=== PATIENT | female | born 1955 | race Two or more races ===

== ENCOUNTER 2021-01-30 17:09 | Emergency (ER) | payer OTHER ==
[~2021-01-30] VITALS: Ht 167.6 cm; Wt 64.4 kg
--- NOTE | 2021-01-30 17:09 | NUR ---
[facility] C/O SOB "POSSIBLE BLOCKAGE ON THE TRACH" PT IS AAOX2, NOTED RESPIRATORY DISTRESS, HOOKED TO NECKTIES PAINTER AND AMBU BAG. RT AT BEDSIDE AND FOR EVAL.
--- NOTE | 2021-01-30 17:20 | NUR ---
TRACH REPLACED BY RT. PT V/S STABLE, NOT IN RESPIRATORY DISTRESS, AWARE.
--- NOTE | 2021-01-30 17:38 | NUR ---
ER PHLEB AT BEDSIDE FOR BLOOD DRAW.
--- NOTE | 2021-01-30 17:41 | NUR ---
WINDING DEPARTMENT SUPERVISOR AT BEDSIDE FOR XRAY.
[2021-01-30 17:44] LABS: BASOPHILS # (AUTO) 0.1 /CMM (0.0-0.2); BASOPHILS % (AUTO) 1.1 % (0.0-2.0); EOSINOPHILS % (AUTO) 6.5 % (0.0-6.0); HEMATOCRIT 32 % (33-45); HEMOGLOBIN 10.3 g/dL (11.5-14.8); LYMPHOCYTES # (AUTO) 2.4 /CMM (0.8-4.8); LYMPHOCYTES % (AUTO) 19.8 % (20.0-44.0); MEAN CORPUSCULAR HGB CONC 32 g/dl (31.0-36.0); MEAN CORPUSCULAR VOLUME 92 fL (82-100); MONOCYTES # (AUTO) 0.9 /CMM (0.1-1.30); MONOCYTES % (AUTO) 7.5 % (2.0-12.0); NEUTROPHILS % (AUTO) 65.1 % (43.0-81.0); PLATELET COUNT (AUTO) 474 /CMM (150-450); RED BLOOD CELL COUNT(AUTO) 3.48 MIL/uL (4.0-5.2); WHITE BLOOD COUNT (AUTO) 12.3 K/uL (4.3-11.0)
[2021-01-30 17:51] LABS: CALCIUM, SERUM 9.8 mg/dL (8.5-10.1); CREATININE 0.8 mg/dL (0.6-1.3); POTASSIUM 3.8 mmol/L (3.5-5.1)
--- NOTE | 2021-01-30 19:06 | NUR ---
CALLED [facility] FOR TRANSPORT TO [facility]. ETA 75-90 MINUTES.
--- NOTE | 2021-01-30 19:42 | NUR ---
Report given to Sam WHITLEY for continuation of care.
[2021-01-30 21:01] VITALS: BP 105/63
--- NOTE | 2021-01-30 21:01 | NUR ---
PT WAS PICKED UP BY [facility] AND TRANSPORTED BACK TO THE FACILITY IN STABLE CONDITION
== END 2021-01-30 21:02 | disposition home or self-care (01) ==
LOC: ER 17:14
DX: J95.03 Malfunction of tracheostomy stoma (principal); R06.03 Acute respiratory distress; I10 Essential (primary) hypertension; K21.9 Gastro-esophageal reflux disease without esophagitis; E11.40 Type 2 diabetes mellitus with diabetic neuropathy, unspecified; Z88.6 Allergy status to analgesic agent
CPT/HCPCS: 36415; 71045-TC; 80048-TC; 85025-TC

== ENCOUNTER 2021-02-04 23:14 | Inpatient (IN) | payer OTHER ==
[~2021-02-04] VITALS: Ht 167.6 cm; Wt 60.8 kg
[2021-02-04] MEDS ORDERED: ACETAMINOPHEN 650 MG/SUPP.RECT RC ONE ×2 (23:30→23:33)
--- NOTE | 2021-02-04 23:34 | NUR ---
PATIENT CAME TO THE ER BED 5 C/O SOB FROM [facility]. PATIENT IS AAOX4. PATIENT IS COUGHING W/ BLOOD FROM TRACH. PATIENT IS SUCTIONED FROM TRACH W/ BLOODY MUCOUS PLUG. PATIENT IS BREATHING EVENLY AND UNLABORED ON VENTILATOR. CONNECTED TO THE PRINCIPAL ASSOCIATE. WILL CONTINUE TO MONITOR PATIENT CLOSELY.
[2021-02-04] MEDS ORDERED: ACETAMINOPHEN 650 MG/20.3 ML UDC ONE (23:39)
[2021-02-04 23:41] LABS: BASOPHILS # (AUTO) 0.2 /CMM (0.0-0.2); HEMATOCRIT 33 % (33-45); HEMOGLOBIN 10.8 g/dL (11.5-14.8); LYMPHOCYTES # (AUTO) 4.9 /CMM (0.8-4.8); LYMPHOCYTES % (AUTO) 23.3 % (20.0-44.0); MEAN CORPUSCULAR HGB CONC 33 g/dl (31.0-36.0); MEAN CORPUSCULAR VOLUME 90 fL (82-100); MONOCYTES # (AUTO) 1.8 /CMM (0.1-1.30); MONOCYTES % (AUTO) 8.7 % (2.0-12.0); NEUTROPHILS # (AUTO) 12.9 /CMM (1.8-8.9); PLATELET COUNT (AUTO) 477 /CMM (150-450); WHITE BLOOD COUNT (AUTO) 21.2 K/uL (4.3-11.0)
[2021-02-04 23:52] LABS: CALCIUM, SERUM 10.1 mg/dL (8.5-10.1); CARBON DIOXIDE 35 mmol/L (21-32); CHLORIDE 93 mmol/L (98-107); CREATININE 0.8 mg/dL (0.6-1.3); GLUCOSE 228 mg/dL (74-106); POTASSIUM 3.7 mmol/L (3.5-5.1); SODIUM SERUM 134 mmol/L (136-145); UREA NITROGEN, BLOOD 15 mg/dL (7-18)
--- NOTE | 2021-02-04 23:55 | NUR ---
rt called to er dept for pending arrival of chronic vent pt. pt bibra ventilated via ambu bag with portex 8 trach. pt had no vent settings available to be used as reference, pt placed on vent settings ac 20 400 100% +5. suctioned a small amount of thick red tinged secretions with what appeared to be a blood clot. Addendum: 02/05/21 at 0500 by WILLIAMS GARCIA RT Amended: Links added.
[2021-02-04 23:58] LABS: ALANINE AMINOTRANSFERASE 13 U/L (12-78); ALBUMIN 2.8 g/dL (3.4-5.0); ALKALINE PHOSPHATASE 90 U/L (46-116); ASPARTATE AMINOTRANSFERASE 22 U/L (15-37); BILIRUBIN,DIRECT 0.1 mg/dL (0.0-0.2); BILIRUBIN,TOTAL 0.3 mg/dL (0.2-1.0); TOTAL PROTEIN, SERUM 8.8 g/dL (6.4-8.2)
[2021-02-05] MEDS ORDERED: VANCOMYCIN 1 GM VIAL ONE (00:58)
[2021-02-05] MEDS ORDERED: PIPERACILLIN /TAZOBACTAM 3.375 G VIAL IV ONE (00:58)
[2021-02-05] MEDS ORDERED: PIPERACILLIN /TAZOBACTAM 3.375 G in IV D5W 50 ML IV ONE (01:00)
[2021-02-05] MEDS ORDERED: VANCOMYCIN 1 GM in IV D5W 250 ML IV ONE (01:00)
[2021-02-05 01:22] LABS: BILIRUBIN,URINE SMALL (NEGATIVE); COLOR,URINE RED (YELLOW); LEUKOCYTE ESTERASE ,URINE MODERATE (NEGATIVE); NITRITE, URINE NEGATIVE (NEGATIVE); PH,URINE 5.5 (5.0-8.0); PROTEIN,URINE 100 mg/dl (NEGATIVE); UGLUCOSE NEGATIVE (NEGATIVE); UROBILINOGEN,URINE 0.2 EU/dL (0.2)
[2021-02-05] MEDS ORDERED: IV NS 0.9% 500 ML BAG IV ONE (01:30)
[2021-02-05] MEDS ORDERED: IV NS 0.9% 1,000 ML IV ONE (01:30)
--- NOTE | 2021-02-05 01:36 | NUR ---
LAB CALLED REGARDING NEGATIVE COVID RESULT.
[2021-02-05 01:53] LABS: RBC,URINE TOO NUMEROUS TO COUN /HPF (0-2)
[2021-02-05 01:54] LABS: BACTERIA,URINE Few /HPF (None Seen); SQUAMOUS EPITHELIAL CELL,UR Rare /HPF (None Seen)
[2021-02-05 01:55] LABS: WBC,URINE 51-80 /HPF (0-3); YEAST,URINE Hyphal filaments /HPF (None Seen)
[2021-02-05 02:01] LABS: ABG BASE EXCESS 4.9 mmol/L; ABG OXYGEN SATURATION 99.1 % (92.0-98.5); ABG PCO2 49.7 mmHg (35.0-45.0); ABG PH 7.404 (7.350-7.450); ABG PO2 410.5 mmHg (75.0-100.0); AaDO2 252.8 mmHg; COHb 0.3 % (0.5-1.5); MetHb 0.5 % (0.0-1.5); O2Hb 98.3 % (94.0-97.0); PEEP,BG 5 cm H2O; SITE, ABG Right Brachial; VENT MODE, BG AC 20 400 100% +5; VT, ABG 400 mL
--- NOTE | 2021-02-05 05:03 | NUR ---
TELE BED 109
--- NOTE | 2021-02-05 05:08 | NUR ---
DAUGHTER BIRD CALLED [phone]
--- NOTE | 2021-02-05 05:42 | NUR ---
RITO GUZMAN DNP PAGED PER ER MD ORDER.
--- NOTE | 2021-02-05 05:55 | NUR ---
REPORT GIVEN TO ROBERT EAGLE PANG. PENDING HOSPITAL ADMISSION.
--- NOTE | 2021-02-05 05:56 | NUR ---
TAMEKA GUPTA SPOKE TO RITO GUZMAN DNP REGARDING PT ADMISSION.
[2021-02-05] MEDS ORDERED: MAG HYDROX/AL HYDROX/SIMETH 30 ML UDC PO PRN (06:30)
[2021-02-05] MEDS ORDERED: Z GUARD REMEDY 2 OZ OINT TP PRN (06:30)
[2021-02-05] MEDS ORDERED: ONDANSETRON HCL/PF 4 MG/2 ML VIAL IVP PRN (06:30)
[2021-02-05 06:45] VITALS: BP 110/59
--- NOTE | 2021-02-05 06:45 | NUR ---
DIRECTOR OF INTEGRATED MARKETING NOTES, RECEIVED PATIENT FROM ER DEPARTMENT VIA GURNEY, ACCOMPANIED BY 2 NURSES, WITH TRACH IN PLACED CONNECTED TO MECHANICAL VENTILATOR, WITH O2 SAT LEVEL 96% AT THIS TIME, NO SOB/ACUTE DISTRESS NOTED, A/O X3 ABLE TO MOUTH WORDS AND LET NEEDS KNOWN, SINUS TACHYCARDIA IN TELE MONITOR WITH HR 114 AT THIS TIME, UNDER MEDICAL SERVICES OF RITO GUZMAN PATTERN FITTER, WITH ADMITTING DX SEPSIS/UTI/PNA, IV ACCESS IN LEFT FORE ARM, NOTED SACRAL PRESSURE SORE, AND SKIN TEAR IN RIGHT LATERAL HOWE, BED LOCK AND IN LOWEST POSITION, CALL LIGHT W/I REACH, BED S/R X2, WILL CONTINUE TO MONITOR CLOSELY.
[2021-02-05] MEDS ORDERED: ENOXAPARIN SODIUM 40 MG/0.4 ML DISP.SYRIN SQ SCH ×2 (06:47→09:00)
--- NOTE | 2021-02-05 07:40 | NUR ---
RT RECEIVED PT TRACH VENT DEPENDENT W/ NOTED SETTINGS. BINDER CUTTER HAND DONE AND TRACH IS SECURE. PT HAS PORTEX # 8 TRACH AND SPARE TRACH NOTED HOB W/ AMUB BAG. VENT IS PLUGGED IN RED OUTLET. ALARMS CHECKED AND AUDIBLE. SX W/ MOD THK BLOOD SECRETIONS. PT ON CONTINUOUS PULSE OX. NO SOB OR RESP DISTRESS. WILL CONTINUE TO MONITOR T/O SHIFT.
[2021-02-05 08:00] VITALS: BP 147/71
[2021-02-05 08:09] VITALS: BP 147/7
[2021-02-05] MEDS ORDERED: PIPERACILLIN /TAZOBACTAM 3.375 G in IV D5W 100 ML IV SCH (09:00)
[2021-02-05] MEDS ORDERED: ATOR20TA PO (09:13)
[2021-02-05] MEDS ORDERED: PIOG45TA5 PO (09:13)
[2021-02-05] MEDS ORDERED: LISI2.5T2 GT (09:13)
[2021-02-05] MEDS ORDERED: APIX2.5T GT (09:13)
[2021-02-05] MEDS ORDERED: INSU100I40 SQ (09:13)
[2021-02-05] MEDS ORDERED: CRAN3875 GT (09:40)
[2021-02-05] MEDS ORDERED: LORA-259 GT (09:40)
[2021-02-05] MEDS ORDERED: PROC10TA13 GT (09:40)
[2021-02-05] MEDS ORDERED: ERGO500014 GT (09:40)
[2021-02-05] MEDS ORDERED: SENN8.8S19 GT (09:40)
[2021-02-05] MEDS ORDERED: PROM6.256 GT (09:40)
[2021-02-05] MEDS ORDERED: NUT.250L18 GT (09:40)
[2021-02-05] MEDS ORDERED: DOCU-141 GT (09:40)
[2021-02-05] MEDS ORDERED: GABA600T12 GT (09:40)
[2021-02-05] MEDS ORDERED: BUDE180A IH (09:40)
[2021-02-05] MEDS ORDERED: ASCO500C17 GT (09:40)
[2021-02-05] MEDS ORDERED: QUET50TA GT ×2 (09:40)
[2021-02-05] MEDS ORDERED: INSU100V7 SQ (09:40)
[2021-02-05] MEDS ORDERED: PANT40TA49 GT (09:40)
[2021-02-05] MEDS ORDERED: BISA10SU11 RC (09:40)
[2021-02-05] MEDS ORDERED: MULT-447 GT (09:40)
[2021-02-05] MEDS ORDERED: METO25TA6 GT (09:40)
[2021-02-05] MEDS ORDERED: PROMETHAZINE HCL SYRUP 6.25 MG/5 ML UDC GT PRN (11:00)
[2021-02-05] MEDS ORDERED: LORAZEPAM 1 MG TABLET GT PRN (11:00)
[2021-02-05] MEDS ORDERED: METOPROLOL TARTRATE 25 MG TABLET GT PRN (11:00)
[2021-02-05] MEDS ORDERED: PROCHLORPERAZINE MALEATE 10 MG TABLET GT PRN (11:00)
[2021-02-05] MEDS ORDERED: BISACODYL SUPP (10 MG) 10 MG/SUPP.RECT SUPP.RECT RC PRN (11:00)
--- NOTE | 2021-02-05 11:14 | NUR ---
RN NOTE ATTEMPTED TO CONTACT FACILITY IN REGARDS TO CLARIFICATION ON VITAMIN D 50,000 UNITS AND IF THEY COULD PROVIDE A MEDICATION NOT STOCKED AT OUR FACILITY. WILL ATTEMPT TO CALL BACK AGAIN.
[2021-02-05 12:00] VITALS: BP 147/80
[2021-02-05] MEDS: MEROPENEM 1 G in IV NS 0.9% 100 ML IV SCH (12:23)
[2021-02-05] MEDS: GABAPENTIN 300 MG CAPSULE GT SCH ×2 (12:23→20:53)
[2021-02-05] MEDS: DEXAMETHASONE SOD PHOSPHATE 10 MG/ML VIAL IV SCH (14:14)
[2021-02-05] MEDS: VANCOMYCIN 1 GM in IV D5W 250 ML IV SCH (14:14)
[2021-02-05 16:00] VITALS: BP 142/85
[2021-02-05] MEDS: SENNOSIDES 8.6 MG TABLET GT SCH (16:29)
[2021-02-05] MEDS: GLUCERNA 1.2 1,000 ML BOTTLE NG PRN (17:32)
[2021-02-05] MEDS: ACETAMINOPHEN 325 MG TABLET PO PRN (18:52)
--- NOTE | 2021-02-05 19:13 | NUR ---
RN CLOSING NOTE PATIENT IS IN BED WITH HOB AT SEMI FOWLERS POSITION. PATIENT IS CURRENTLY ON VENT/TRACH WITH NO SIGNS OF LABORED BREATHING. PATIENT IS AOX2. SACRAL WOUND/REDNESS AND LEFT ANKLE SKIN ULCER ARE NOTED. GTUBE IS RUNNING APPROPRIATE RATE AND FEEDING. MONTEMAYOR CATHETER IS IN PLACE. ALL DUE MEDS GIVEN AND PATIENT REMAINED STABLE THROUGHOUT SHIFT. BED IS LOCKED IN THE LOWEST POSITION, 3 GUARD RAILS RAISED, CALL RASMUSSEN WITHIN REACH, AND ALL HOSPITAL SAFETY PRECAUTIONS HAVE BEEN MET. WILL ENDORSE TO PLUG WIRER RN.
[2021-02-05] MEDS: BUDESONIDE RESPULE INH 0.5 MG/2 ML AMPUL.NEB NEB SCH (19:30)
[2021-02-05 20:00] VITALS: BP 137/78
--- NOTE | 2021-02-05 20:00 | NUR ---
RN NOTE RECEIVED PT IN BED A/O X3, PT MOUTHS WORDS ON MECHANICAL VENT VIA TRACH SATING 97%, NO S/S OF RESPIRATORY DISTRESS, PT IS ON TELE MONITOR SHOWING ST WITH HR IN 110s. PT HAS G TUBE FEEDING RUNNING AT 45 ML/H CHECKED FOR PLACEMENT, 5 ML RESIDUAL NOTED. SAFETY MEASURES IN PLACE.
[2021-02-05] MEDS: APIXABAN 2.5 MG TABLET GT SCH (20:54)
[2021-02-05] MEDS: ZOLPIDEM TARTRATE 5 MG TABLET PO PRN (21:40)
[2021-02-05] MEDS: QUETIAPINE FUMARATE 25 MG TABLET GT SCH (21:40)
[2021-02-05] MEDS: INSULIN GLARGINE, 100 UNIT/ML CARTRIDGE SQ SCH (21:55)
[2021-02-05] MEDS: LORAZEPAM INJ 2 MG/ML VIAL IV PRN (22:54)
[2021-02-05] MEDS ORDERED: DEXTROSE 50%-WATER 50 ML DISP.SYRIN IV PRN (23:00)
[2021-02-06] VITALS: BP_SYST 108; BP_SYST 139; BP_DIAS 72; BP_DIAS 74
[2021-02-06] MEDS: INSULIN REGULAR, HUMAN 100 UNIT/ML 3 ML VIAL SQ PRN ×5 (00:20→23:43)
[2021-02-06] MEDS: BLOOD SUGAR DIAGNOSTIC 1 EACH STRIP IN SCH ×5 (00:21→23:40)
[2021-02-06] MEDS: MEROPENEM 1 G in IV NS 0.9% 100 ML IV SCH ×2 (00:37→12:19)
[2021-02-06] MEDS: VANCOMYCIN 1 GM in IV D5W 250 ML IV SCH (01:29)
[2021-02-06 04:00] VITALS: BP 143/65
[2021-02-06] MEDS: LORAZEPAM INJ 2 MG/ML VIAL IV PRN ×2 (04:50→20:40)
[2021-02-06] MEDS: GABAPENTIN 300 MG CAPSULE GT SCH ×3 (05:22→20:39)
[2021-02-06 06:35] LABS: BASOPHILS % (AUTO) 0.3 % (0.0-2.0); EOSINOPHILS % (AUTO) 0.1 % (0.0-6.0); HEMATOCRIT 30 % (33-45); HEMOGLOBIN 9.7 g/dL (11.5-14.8); LYMPHOCYTES # (AUTO) 1.8 /CMM (0.8-4.8); LYMPHOCYTES % (AUTO) 11.3 % (20.0-44.0); MEAN CORPUSCULAR HGB CONC 33 g/dl (31.0-36.0); MEAN CORPUSCULAR VOLUME 90 fL (82-100); MONOCYTES # (AUTO) 0.9 /CMM (0.1-1.30); MONOCYTES % (AUTO) 5.9 % (2.0-12.0); NEUTROPHILS # (AUTO) 12.8 /CMM (1.8-8.9); NEUTROPHILS % (AUTO) 82.4 % (43.0-81.0); PLATELET COUNT (AUTO) 434 /CMM (150-450); RED BLOOD CELL COUNT(AUTO) 3.27 MIL/uL (4.0-5.2); WHITE BLOOD COUNT (AUTO) 15.5 K/uL (4.3-11.0)
[2021-02-06 06:52] LABS: CALCIUM, SERUM 9.7 mg/dL (8.5-10.1); CREATININE 0.7 mg/dL (0.6-1.3); MAGNESIUM 2.1 mg/dL (1.8-2.4); PHOSPHORUS 2.3 mg/dL (2.5-4.9); POTASSIUM 3.3 mmol/L (3.5-5.1)
[2021-02-06] MEDS: BUDESONIDE RESPULE INH 0.5 MG/2 ML AMPUL.NEB NEB SCH ×2 (07:30→19:46)
[2021-02-06] MEDS ORDERED: PANTOPRAZOLE 40 MG TABLET.DR PO SCH (07:30)
--- NOTE | 2021-02-06 07:30 | NUR ---
RN NOTE REPORT GIVEN TO ONCOMING SHIFT FOR PRICILA.
--- NOTE | 2021-02-06 07:30 | NUR ---
RN OPENING NOTE TRACH PT LAYING IN BED HIGH FOWLERS ON VENT SETTINGS AC 20, TV 400 FIO2 40% PEEP 5, TOLERATING WELL, SPO2 100%, NO SIGN OF RESP DISTRESS OR SOB. PT AROUSABLE TO NAME, UNABLE TO SPEAK BUT CAN MOUTH WORDS, A/Ox3. PT HAS BILAT SOFT WRIST RESTRAINTS , PER REPORT, PULL OUT HER VENT TUBING LAST SHIFT AND WAS NON-COMPLIANT WITH TREATMENT, BILAT CMS INTACT. PT HAS ODILON MIDLINE SL, FLUSHED, PATENT, INTACT WITH NO SIGNS OF INFECTION/INFILTRATION. PT HAS GTUBE, GLUCERNA 1.2 FEEDING @ 45ML/HR- ON FOR 20HR OFF FOR 4HR THEN RESTART. GTUBE AUSCULTATED FOR POSITIVE PLACEMENT, NO RESIDUALS, AND FLUSHED FOR PATENCY. PT DENIES PAIN CURRENTLY. DR HARRIS INFORMED OF POTASSIUM OF 3.3. ALL SAFETY PRECAUTIONS IN PLACE, WILL CONT TO MONITOR Addendum: 02/06/21 at 1115 by PATRICK CROOK RN PT SINUS TACHY AT 110 ON MONITOR
--- NOTE | 2021-02-06 07:50 | NUR ---
RT RECEIVED PT TRACH VENT DEPENDENT WITH NOTED SETTINGS. CHANNEL DEVELOPMENT DIRECTOR DONE AND TRACH IS SECURE. VENT IS PLUGGED IN THE RED OUTLET. AMBU BAG AND SPARE TRACH NOTED HOB. SX W/ MOD THK BROWN TO BLOOD TINGED SECRETIONS. PT ON CONTINUOUS PULSE OX. NO SOB OR RESP DISTRESS NOTED. PER COVID 19 PROTOCOL, PT PCR PENDING AND CONSIDERED R/O, BREATHING TX NOT GIVEN. WILL CONTINUE TO MONITOR T/O SHIFT.
[2021-02-06 08:00] VITALS: BP 144/71
[2021-02-06] MEDS: MULTIVIT W/MINERALS 1 TAB TABLET PO SCH (08:55)
[2021-02-06] MEDS: DEXAMETHASONE SOD PHOSPHATE 10 MG/ML VIAL IV SCH (08:55)
[2021-02-06] MEDS: QUETIAPINE FUMARATE 25 MG TABLET GT SCH ×2 (08:56→21:10)
[2021-02-06] MEDS: APIXABAN 2.5 MG TABLET GT SCH ×2 (08:56→16:28)
[2021-02-06] MEDS: SENNOSIDES 8.6 MG TABLET GT SCH ×2 (08:56→16:27)
[2021-02-06] MEDS: ASCORBIC ACID 500 MG TABLET GT SCH (08:57)
[2021-02-06] MEDS: LISINOPRIL (5MG) 5 MG TABLET GT SCH (08:58)
[2021-02-06] MEDS ORDERED: DOCUSATE SODIUM 100 MG CAPSULE PO SCH (09:00)
[2021-02-06] MEDS ORDERED: Medication Not On Formulary EA (Cran/Vitc/Mannose/Inulin/Brom (Uti-Stat Liquid) 30 ML) GT SCH (09:00)
[2021-02-06] MEDS: POTASSIUM PHOSPHATE MM 7.5 MMOL in IV NS 0.9% 100 ML IV SCH ×2 (11:57→16:28)
[2021-02-06 12:00] VITALS: BP 123/73
[2021-02-06] MEDS: ACETAMINOPHEN 325 MG TABLET PO PRN (13:14)
--- NOTE | 2021-02-06 13:51 | NUR ---
RN NOTE PER PHARMACIST TOSHA PEDRAZA TO GIVE VANCO 750 @ 2100 TONIGHT EVEN THOUGH VANCO TROUGH IS CURRENTLY AT 21. HOLDING 1400 VANCO CURRENTLY
--- NOTE | 2021-02-06 14:30 | NUR ---
RN NOTE INFORMED RT TRACIE OF PT VENTILATOR TUBING BECOMING DISPLACED FROM PT'S TRACH MULTIPLE TIMES DURING SHIFT, TRACIE TIGHTENED CONNECTION
[2021-02-06] MEDS: FLUCONAZOLE (100 MG) 100 MG TABLET PO SCH (15:14)
[2021-02-06 16:00] VITALS: BP_SYST 118; BP_SYST 132; BP_DIAS 67; BP_DIAS 72
[2021-02-06] MEDS: MICONAZOLE NITRATE VAG CREAM 45 GM TUBE VG SCH (16:28)
[2021-02-06] MEDS ORDERED: CLOTRIMAZOLE VG SCH (17:00)
[2021-02-06] MEDS ORDERED: VAG VG SCH (17:00)
[2021-02-06] MEDS: GLUCERNA 1.2 1,000 ML BOTTLE NG PRN (17:55)
--- NOTE | 2021-02-06 19:00 | NUR ---
RN CLOSING NOTE ONLY CHANGE TO PT STATUS DURING SHIFT IS VAGINAL BURNING, VAGISIL GIVEN INTO VAGINA, FLUCONAZOLE GIVEN VIA GTUBE. ALL PT SAFETY PRECAUTIONS IN PLACE. WILL ENDORSE PRICILA TO ONCOMING RN
[2021-02-06 20:00] VITALS: BP 115/72
--- NOTE | 2021-02-06 20:10 | NUR ---
RN NOTE PATIENT A/OX3, AWAKE. ABLE TO MOUTH WORDS. HEAD OF BED ELEVATED. ON MECH VENT, TOLERATING SETTINGS WELL. O2 SAT 97%. TELE MONITOR ON, ST 110'S. WITH MONTEMAYOR CATH, PATENT AND INTACT DRAINING YELLOW URINE TO GRAVITY. WITH BILATERAL SOFT WRIST RESTRAINTS, CIRCULATION AND SKIN CHECKED. NO S/S OF SKIN BREAKDOWN. ON G-TUBE GLUCERNA 1.2 @45ML/HR. NO RESIDUAL NOTED. ODILON MIDLINE PATENT AND INTACT. BED LOCKED AND IN LOWEST POSITION. CALL LIGHT WITHIN REACH. SIDE RAILS UPX2. WILL CONTINUE TO MONITOR.
[2021-02-06] MEDS ORDERED: VANCOMYCIN HCL 0.75 GM in IV D5W 250 ML IV SCH (21:00)
[2021-02-06] MEDS: INSULIN GLARGINE, 100 UNIT/ML CARTRIDGE SQ SCH (23:42)
[2021-02-07] VITALS: BP 108/72
[2021-02-07] MEDS: MEROPENEM 1 G in IV NS 0.9% 100 ML IV SCH ×2 (00:19→12:30)
[2021-02-07 04:00] VITALS: BP 115/76
[2021-02-07] MEDS: GABAPENTIN 300 MG CAPSULE GT SCH ×3 (04:54→21:07)
[2021-02-07] MEDS: BLOOD SUGAR DIAGNOSTIC 1 EACH STRIP IN SCH ×3 (05:27→17:24)
[2021-02-07] MEDS: INSULIN REGULAR, HUMAN 100 UNIT/ML 3 ML VIAL SQ PRN ×2 (05:29→17:26)
[2021-02-07 06:14] LABS: BASOPHILS % (AUTO) 0.3 % (0.0-2.0); EOSINOPHILS % (AUTO) 0.4 % (0.0-6.0); HEMATOCRIT 31 % (33-45); HEMOGLOBIN 10.1 g/dL (11.5-14.8); LYMPHOCYTES # (AUTO) 2.2 /CMM (0.8-4.8); LYMPHOCYTES % (AUTO) 13.9 % (20.0-44.0); MEAN CORPUSCULAR HGB CONC 33 g/dl (31.0-36.0); MEAN CORPUSCULAR VOLUME 90 fL (82-100); MONOCYTES # (AUTO) 1.3 /CMM (0.1-1.30); NEUTROPHILS # (AUTO) 12.3 /CMM (1.8-8.9); NEUTROPHILS % (AUTO) 77.4 % (43.0-81.0); PLATELET COUNT (AUTO) 454 /CMM (150-450); RED BLOOD CELL COUNT(AUTO) 3.41 MIL/uL (4.0-5.2); WHITE BLOOD COUNT (AUTO) 15.9 K/uL (4.3-11.0)
[2021-02-07 06:20] LABS: CALCIUM, SERUM 9.9 mg/dL (8.5-10.1); CREATININE 0.6 mg/dL (0.6-1.3); MAGNESIUM 2.2 mg/dL (1.8-2.4); PHOSPHORUS 3.4 mg/dL (2.5-4.9); POTASSIUM 3.5 mmol/L (3.5-5.1)
--- NOTE | 2021-02-07 07:09 | NUR ---
RN NOTE PATIENT A/OX3. HEAD OF BED ELEVATED. ON MECH VENT, TOLERATING SETTINGS WELL. O2 SAT 100%. TELE MONITOR ON, ST 110'S. WITH MONTEMAYOR CATH, PATENT AND INTACT DRAINING YELLOW URINE TO GRAVITY 700 OUTPUT. WITH BILATERAL SOFT WRIST RESTRAINTS, CIRCULATION AND SKIN CHECKED. NO S/S OF SKIN BREAKDOWN. ON G-TUBE GLUCERNA 1.2 @45ML/HR. ODILON MIDLINE PATENT AND INTACT. BED LOCKED AND IN LOWEST POSITION. CALL LIGHT WITHIN REACH. SIDE RAILS UPX2. WILL ENDORSE TO ONCOMING SHIFT.
[2021-02-07] MEDS: BUDESONIDE RESPULE INH 0.5 MG/2 ML AMPUL.NEB NEB SCH ×2 (07:37→19:51)
[2021-02-07 08:00] VITALS: BP 104/77
--- NOTE | 2021-02-07 08:00 | NUR ---
RN NOTE RECEIVED PATIENT. PATIENT REMAINS STABLE WITH NO SIGNS OF LABORED BREATHING. WILL CONTINUE TO MONITOR THROUGHOUT SHIFT.
[2021-02-07] MEDS: LISINOPRIL (5MG) 5 MG TABLET GT SCH (09:00)
[2021-02-07] MEDS: MICONAZOLE NITRATE VAG CREAM 45 GM TUBE VG SCH ×2 (09:00→16:17)
[2021-02-07] MEDS: DOCUSATE SODIUM LIQ 100 MG/10 ML UDC GT SCH (09:42)
[2021-02-07] MEDS: QUETIAPINE FUMARATE 25 MG TABLET GT SCH ×2 (09:42→21:54)
[2021-02-07] MEDS: DEXAMETHASONE SOD PHOSPHATE 10 MG/ML VIAL IV SCH (09:42)
[2021-02-07] MEDS: PANTOPRAZOLE 40 MG/PACK PACK GT SCH (09:42)
[2021-02-07] MEDS: MULTIVIT W/MINERALS 1 TAB TABLET PO SCH (09:42)
[2021-02-07] MEDS: ASCORBIC ACID 500 MG TABLET GT SCH (09:44)
[2021-02-07] MEDS: SENNOSIDES 8.6 MG TABLET GT SCH ×2 (09:44→16:09)
[2021-02-07] MEDS: APIXABAN 2.5 MG TABLET GT SCH ×2 (09:45→16:10)
--- NOTE | 2021-02-07 10:32 | NUR ---
WOUND CARE CONSULT: PT PRESENTS WITH RT LOWER LEG WOUND, SACRAL SCAR AND RASH TO BUTTOCKS, PRESENT ON ADMISSION. RECOMMEND DPM CONSULT. DR CHRISTIAN NOTIFIED OF CONSULT REQUEST. RECOMMENDATIONS MADE FOR SKIN PROTECTION. DISCUSSED WITH NURSING STAFF. CURRENT ABHISHEK SCORE IS 12. FIRST STEP LOW AIRLOSS MATTRESS IS ON ORDER. MD IN AGREEMENT WITH PLAN OF CARE. Addendum: 02/07/21 at 1035 by AURELIANO CADE WNDNU Amended: Links added.
[2021-02-07 12:00] VITALS: BP 123/72
[2021-02-07] MEDS: FLUCONAZOLE (100 MG) 100 MG TABLET PO SCH (15:54)
[2021-02-07 16:00] VITALS: BP 116/62
[2021-02-07] MEDS: CLOTRIMAZOLE 1% 15 GM TUBE TP SCH (16:10)
[2021-02-07] MEDS: LORAZEPAM INJ 2 MG/ML VIAL IV PRN (17:32)
--- NOTE | 2021-02-07 18:00 | NUR ---
rn note specialty mattress applied
[2021-02-07] MEDS: GLUCERNA 1.2 1,000 ML BOTTLE NG PRN (18:25)
--- NOTE | 2021-02-07 19:07 | NUR ---
RN CLOSING NOTE PATIENT IS IN BED WITH HOB AT SEMI FOWLERS POSITION. PATIENT IS CURRENTLY ON VENT/TRACH WITH NO SIGNS OF LABORED BREATHING. PATIENT IS AOX3. SACRAL WOUND/REDNESS AND RIGHT ANKLE SKIN ULCER ARE NOTED. GTUBE IS RUNNING APPROPRIATE RATE AND FEEDING. MONTEMAYOR CATHETER IS IN PLACE. ALL DUE MEDS GIVEN AND PATIENT REMAINED STABLE THROUGHOUT SHIFT. BED IS LOCKED IN THE LOWEST POSITION, 3 GUARD RAILS RAISED, CALL RASMUSSEN WITHIN REACH, AND ALL HOSPITAL SAFETY PRECAUTIONS HAVE BEEN MET. WILL ENDORSE TO MARKETING PRODUCER RN.
[2021-02-07 20:00] VITALS: BP 111/60
--- NOTE | 2021-02-07 20:01 | NUR ---
FLAME CHANNELER OPENING NOTES PATIENT A/O X3; MOUTHS WORKS. ON TRACH AND TOLERATING MECH VENT SETTINGS WELL WITH NO SOB. EXTERNAL MOLDING PROCESS TECHNICIAN READS NSR AND HR AT 77. ODILON MIDLINE; PATENT AND INTACT. DENIES PAIN OR DISCOMFORT AT THIS TIME. GTUBE PEG PATENT AND INTACT; GLUCERNA 1.2 @ 45/ML; TOLERATING FEEDINGS WELL. SAFETY MEASURES IN PLACE: SIDE RAILS UPX2, CALL LIGHT WITHIN REACH, BED IN LOWEST LOCKED POSITION, BED ALARMS ON. PATIENT MEDICALLY STABLE.
[2021-02-07] MEDS: INSULIN GLARGINE, 100 UNIT/ML CARTRIDGE SQ SCH (22:06)
[2021-02-08] VITALS: BP 111/69
[2021-02-08] MEDS: INSULIN REGULAR, HUMAN 100 UNIT/ML 3 ML VIAL SQ PRN ×4 (00:16→23:44)
[2021-02-08] MEDS: BLOOD SUGAR DIAGNOSTIC 1 EACH STRIP IN SCH ×5 (00:17→23:44)
[2021-02-08] MEDS: MEROPENEM 1 G in IV NS 0.9% 100 ML IV SCH ×2 (01:11→12:21)
[2021-02-08] MEDS: LORAZEPAM INJ 2 MG/ML VIAL IV PRN (03:53)
[2021-02-08 04:00] VITALS: BP 125/77
[2021-02-08] MEDS: GABAPENTIN 300 MG CAPSULE GT SCH ×3 (05:20→21:50)
[2021-02-08 06:22] LABS: BASOPHILS # (AUTO) 0.1 /CMM (0.0-0.2); BASOPHILS % (AUTO) 0.8 % (0.0-2.0); EOSINOPHILS % (AUTO) 0.1 % (0.0-6.0); HEMATOCRIT 28 % (33-45); HEMOGLOBIN 9.2 g/dL (11.5-14.8); LYMPHOCYTES # (AUTO) 2.4 /CMM (0.8-4.8); LYMPHOCYTES % (AUTO) 15.4 % (20.0-44.0); MEAN CORPUSCULAR HGB CONC 32 g/dl (31.0-36.0); MEAN CORPUSCULAR VOLUME 92 fL (82-100); MONOCYTES # (AUTO) 1.2 /CMM (0.1-1.30); MONOCYTES % (AUTO) 7.8 % (2.0-12.0); NEUTROPHILS % (AUTO) 75.9 % (43.0-81.0); PLATELET COUNT (AUTO) 451 /CMM (150-450); RED BLOOD CELL COUNT(AUTO) 3.09 MIL/uL (4.0-5.2); WHITE BLOOD COUNT (AUTO) 15.8 K/uL (4.3-11.0)
[2021-02-08 06:58] LABS: CALCIUM, SERUM 9.8 mg/dL (8.5-10.1); CREATININE 0.6 mg/dL (0.6-1.3); MAGNESIUM 2.4 mg/dL (1.8-2.4); PHOSPHORUS 3.8 mg/dL (2.5-4.9); POTASSIUM 4.8 mmol/L (3.5-5.1)
[2021-02-08] MEDS: BUDESONIDE RESPULE INH 0.5 MG/2 ML AMPUL.NEB NEB SCH ×2 (07:30→19:13)
--- NOTE | 2021-02-08 07:30 | NUR ---
RN OPENING NOTES RECEIVED PT IN BED, A/O X3. ON VENT/TRACH WITH NO SIGNS OF LABORED BREATHING. SACRAL WOUND/REDNESS AND RIGHT ANKLE SKIN ULCER ARE NOTED. GTUBE PLACEMENT CHECKED AND RUNNING GLUCERNA 1.2 @45ML/HR, NO RESIDUAL. MONTEMAYOR CATHETER IN PLACE. SAFETY MEASURES IN PLACE. CALL LIGHT WITHIN REACH. BED LOCKED AND IN THE LOWEST POSITION WITH SIDE RAILS UP X3. WILL CONTINUE TO MONITOR.
--- NOTE | 2021-02-08 07:42 | NUR ---
RN NOTE PT REMAINED STABLE DURING MY SHIFT REPORT GIVEN TO ONCOMING SHIFT FOR PRICILA.
[2021-02-08 08:00] VITALS: BP 128/75
[2021-02-08] MEDS: DOCUSATE SODIUM LIQ 100 MG/10 ML UDC GT SCH (09:12)
[2021-02-08] MEDS: PANTOPRAZOLE 40 MG/PACK PACK GT SCH (09:12)
[2021-02-08] MEDS: MULTIVIT W/MINERALS 1 TAB TABLET PO SCH (09:12)
[2021-02-08] MEDS: ASCORBIC ACID 500 MG TABLET GT SCH (09:12)
[2021-02-08] MEDS: SENNOSIDES 8.6 MG TABLET GT SCH ×2 (09:12→16:25)
[2021-02-08] MEDS: LISINOPRIL (5MG) 5 MG TABLET GT SCH (09:13)
[2021-02-08] MEDS: QUETIAPINE FUMARATE 25 MG TABLET GT SCH ×2 (09:14→21:50)
[2021-02-08] MEDS: DEXAMETHASONE SOD PHOSPHATE 10 MG/ML VIAL IV SCH (09:14)
[2021-02-08] MEDS: CLOTRIMAZOLE 1% 15 GM TUBE TP SCH ×2 (09:16→16:29)
[2021-02-08] MEDS: APIXABAN 2.5 MG TABLET GT SCH ×2 (09:16→16:28)
[2021-02-08] MEDS: MICONAZOLE NITRATE VAG CREAM 45 GM TUBE VG SCH ×2 (09:17→16:29)
[2021-02-08] MEDS: THERAHONEY GEL 1.5 OZ TUBE TP SCH (09:17)
[2021-02-08 12:00] VITALS: BP 126/77
[2021-02-08] MEDS: FLUCONAZOLE (100 MG) 100 MG TABLET PO SCH (15:45)
[2021-02-08 16:00] VITALS: BP 113/74
--- NOTE | 2021-02-08 19:30 | NUR ---
RN CLOSING NOTES NO SIGNIFICANT CHANGES THROUGHOUT THE SHIFT. IN STABLE CONDITION. NO PAIN REPORTED AT THIS TIME. SAFETY MEASURES STILL IN PLACE. WILL ENDORSE TO NIGHT NURSE FOR PRICILA.
[2021-02-08 20:00] VITALS: BP 117/71
[2021-02-08] MEDS: ZOLPIDEM TARTRATE 5 MG TABLET PO PRN (21:53)
[2021-02-08] MEDS: INSULIN GLARGINE, 100 UNIT/ML CARTRIDGE SQ SCH (22:05)
[2021-02-08] MEDS: GLUCERNA 1.2 1,000 ML BOTTLE NG PRN (23:34)
[2021-02-09 00:26] VITALS: BP 117/71
--- NOTE | 2021-02-09 01:00 | NUR ---
BLOOD SUGAR 139 1 HOUR AFTER 2400 BLOOD SUGAR COVERAGE ORDERED
[2021-02-09] MEDS: MEROPENEM 1 G in IV NS 0.9% 100 ML IV SCH ×2 (01:13→13:03)
[2021-02-09 04:00] VITALS: BP 119/68
[2021-02-09] MEDS: LORAZEPAM INJ 2 MG/ML VIAL IV PRN (04:34)
[2021-02-09] MEDS: GABAPENTIN 300 MG CAPSULE GT SCH ×3 (04:35→20:11)
--- NOTE | 2021-02-09 05:29 | NUR ---
ENDING NOTES: ALERT AND ORIENTATED X3 WILL WHISPER OR WRITE DOWN HER NEEDS MAX ASIST TO BE CLEANED AND REPOSITIONED PICLIN REMAINS PATENT GLUCERNIA INFUSING 45 ML HR NO RESIDUALS ASP PRECAUTIONS ON THE WORSHIP DIRECTOR SR IN THE 80 - 90S THRU THE NIGHT SLEPT WELL AFTER THE AMBIEN ATIVAN GIVEN AT 04;30 PRIOR HER BATH AND LINEN CHANGE DT SHE WAS ANXIIOUS
[2021-02-09 05:45] LABS: BASOPHILS # (AUTO) 0.1 /CMM (0.0-0.2); BASOPHILS % (AUTO) 0.6 % (0.0-2.0); EOSINOPHILS % (AUTO) 0.1 % (0.0-6.0); HEMATOCRIT 32 % (33-45); HEMOGLOBIN 10.3 g/dL (11.5-14.8); LYMPHOCYTES # (AUTO) 2.3 /CMM (0.8-4.8); LYMPHOCYTES % (AUTO) 15.7 % (20.0-44.0); MEAN CORPUSCULAR HGB CONC 32 g/dl (31.0-36.0); MEAN CORPUSCULAR VOLUME 89 fL (82-100); MONOCYTES # (AUTO) 1.2 /CMM (0.1-1.30); MONOCYTES % (AUTO) 8.1 % (2.0-12.0); NEUTROPHILS # (AUTO) 11.3 /CMM (1.8-8.9); NEUTROPHILS % (AUTO) 75.5 % (43.0-81.0); PLATELET COUNT (AUTO) 443 /CMM (150-450); RED BLOOD CELL COUNT(AUTO) 3.56 MIL/uL (4.0-5.2)
[2021-02-09] MEDS: BLOOD SUGAR DIAGNOSTIC 1 EACH STRIP IN SCH ×4 (06:07→23:45)
[2021-02-09 06:10] LABS: CALCIUM, SERUM 9.5 mg/dL (8.5-10.1); CREATININE 0.6 mg/dL (0.6-1.3); MAGNESIUM 2.3 mg/dL (1.8-2.4); PHOSPHORUS 3.7 mg/dL (2.5-4.9); POTASSIUM 4.2 mmol/L (3.5-5.1)
[2021-02-09] MEDS: BUDESONIDE RESPULE INH 0.5 MG/2 ML AMPUL.NEB NEB SCH ×2 (07:18→19:52)
[2021-02-09 08:00] VITALS: BP 119/76
[2021-02-09] MEDS: LISINOPRIL (5MG) 5 MG TABLET GT SCH (09:14)
[2021-02-09] MEDS: ASCORBIC ACID 500 MG TABLET GT SCH (09:15)
[2021-02-09] MEDS: QUETIAPINE FUMARATE 25 MG TABLET GT SCH ×2 (09:15→21:42)
[2021-02-09] MEDS: DOCUSATE SODIUM LIQ 100 MG/10 ML UDC GT SCH (09:15)
[2021-02-09] MEDS: SENNOSIDES 8.6 MG TABLET GT SCH ×2 (09:15→17:08)
[2021-02-09] MEDS: MULTIVIT W/MINERALS 1 TAB TABLET PO SCH (09:15)
[2021-02-09] MEDS: PANTOPRAZOLE 40 MG/PACK PACK GT SCH (09:15)
[2021-02-09] MEDS: DEXAMETHASONE SOD PHOSPHATE 10 MG/ML VIAL IV SCH (09:16)
[2021-02-09] MEDS: APIXABAN 2.5 MG TABLET GT SCH ×2 (09:16→17:10)
[2021-02-09] MEDS: CLOTRIMAZOLE 1% 15 GM TUBE TP SCH ×2 (09:23→17:10)
[2021-02-09] MEDS: THERAHONEY GEL 1.5 OZ TUBE TP SCH (09:23)
[2021-02-09] MEDS: MICONAZOLE NITRATE VAG CREAM 45 GM TUBE VG SCH ×2 (09:23→17:10)
[2021-02-09 12:00] VITALS: BP 107/55
--- NOTE | 2021-02-09 12:00 | NUR ---
RN NOTES SEEN BY JAY ARMENDARIZ, WILL RELEASE FROM RESTRAINTS. PT COMFORTABLE. WILL CONTINUE TO ASSESS
[2021-02-09] MEDS: INSULIN REGULAR, HUMAN 100 UNIT/ML 3 ML VIAL SQ PRN ×3 (13:35→23:48)
--- NOTE | 2021-02-09 13:35 | NUR ---
RN NOTES BS OF 121, NO INSULIN COVERAGE.
[2021-02-09] MEDS: FLUCONAZOLE (100 MG) 100 MG TABLET PO SCH (15:06)
[2021-02-09 16:00] VITALS: BP 113/73
--- NOTE | 2021-02-09 18:45 | NUR ---
RN CLOSING NOTES NO SIGNIFICANT CHANGES THROUGHOUT THE SHIFT. NEEDS ATTENDED. DENIES ANY PAIN. STABLE CONDITION. RESTRAINTS OFF. COMFORTABLE, NOT PULLING ANY LINES/TUBES. SAFETY MEASURES IN PLACE. WILL ENDORSE TO NIGHT NURSE FOR PRICILA.
--- NOTE | 2021-02-09 19:20 | NUR ---
RN OPENING NOTE RECEIVED PATIENT IN BED RESTING ALERT ORIENTED X3 ON VENT ON TRACH AC 20 TV 400 FIO2:40% PEEP 5 O2:100% ON G-TUBE FEEDING GLUCERNA 1.2 45CC/HR CHECKED PLACEMENT IN PLACE NO RESIDUAL NOTED,MONTEMAYOR IN PLACE URINE DRAINING YELLOW AND CLEAR,HEAD OF THE BED ELEVATED,CALL LIGHT WITHIN REACH,SAFETY MEASURE IMPLEMENT CONTINUE TO MONITOR.
[2021-02-09 20:00] VITALS: BP 107/66
[2021-02-09] MEDS: ZOLPIDEM TARTRATE 5 MG TABLET PO PRN (20:44)
[2021-02-09] MEDS: INSULIN GLARGINE, 100 UNIT/ML CARTRIDGE SQ SCH (21:45)
[2021-02-10] VITALS: BP 109/65
[2021-02-10] MEDS: MEROPENEM 1 G in IV NS 0.9% 100 ML IV SCH ×2 (00:12→12:01)
[2021-02-10] MEDS: GLUCERNA 1.2 1,000 ML BOTTLE NG PRN (02:42)
[2021-02-10 04:00] VITALS: BP 107/61
[2021-02-10] MEDS: GABAPENTIN 300 MG CAPSULE GT SCH ×3 (04:12→20:46)
[2021-02-10] MEDS: INSULIN REGULAR, HUMAN 100 UNIT/ML 3 ML VIAL SQ PRN ×2 (05:48→23:36)
[2021-02-10] MEDS: BLOOD SUGAR DIAGNOSTIC 1 EACH STRIP IN SCH ×4 (05:48→23:30)
--- NOTE | 2021-02-10 05:53 | NUR ---
RN NOTE BS IS 106 NOT REQUIRES INSULIN PER SLIDING SCALE CONTINUE TO MONITOR.
[2021-02-10 06:37] LABS: BASOPHILS % (AUTO) 0.2 % (0.0-2.0); EOSINOPHILS % (AUTO) 0.3 % (0.0-6.0); HEMATOCRIT 32 % (33-45); HEMOGLOBIN 10.3 g/dL (11.5-14.8); LYMPHOCYTES # (AUTO) 2.4 /CMM (0.8-4.8); LYMPHOCYTES % (AUTO) 16.6 % (20.0-44.0); MEAN CORPUSCULAR HGB CONC 33 g/dl (31.0-36.0); MEAN CORPUSCULAR VOLUME 90 fL (82-100); MONOCYTES # (AUTO) 1.1 /CMM (0.1-1.30); MONOCYTES % (AUTO) 7.4 % (2.0-12.0); NEUTROPHILS # (AUTO) 10.9 /CMM (1.8-8.9); NEUTROPHILS % (AUTO) 75.5 % (43.0-81.0); PLATELET COUNT (AUTO) 473 /CMM (150-450); RED BLOOD CELL COUNT(AUTO) 3.54 MIL/uL (4.0-5.2); WHITE BLOOD COUNT (AUTO) 14.5 K/uL (4.3-11.0)
--- NOTE | 2021-02-10 06:59 | NUR ---
RN CLOSING NOTE PATIENT REMAINS ON ALERT ORIENTED X3 ON MECHANICAL VENT SETTING, TRACH PORTEX #8 AC 20 TV 400 FIO2;40% peep 5,G-TUBE IN PLACE GLUCERNA 1.2 45CC/HR NO RESIDUAL NOTED,ALL DUE MEDS GIVEN MD ORDERED KEPT CLEAN AND DRY ALL THE TIME,KEPT CALL LIGHT WITHIN REACH,HEAD OF BED ELEVATED ALL THE TIME,ALL NEEDS MET ENDORSE NEXT COMING SHIFT FOR CONTINUATION OF CARE.
[2021-02-10 07:09] LABS: CALCIUM, SERUM 9.2 mg/dL (8.5-10.1); CREATININE 0.6 mg/dL (0.6-1.3); MAGNESIUM 2.4 mg/dL (1.8-2.4); PHOSPHORUS 3.9 mg/dL (2.5-4.9); POTASSIUM 4.4 mmol/L (3.5-5.1)
[2021-02-10] MEDS: BUDESONIDE RESPULE INH 0.5 MG/2 ML AMPUL.NEB NEB SCH ×2 (07:39→20:23)
--- NOTE | 2021-02-10 07:43 | NUR ---
RN OPENING NOTE PATIENT IS CURRENTLY IN BED WITH HOB AT SEMI FOWLERS POSITION. CURRENTLY ON VENT/TRACH WITH NO SIGNS OF LABORED BREATHING. PATIENT IS CURRENTLY AOX3. MONTEMAYOR CATHETER IS IN PLACE. SACRAL SKIN TEAR AND RIGHT LATERAL ANKLE WOUND ARE NOTED. GTUBE IS IN PLACE WITH APPROPRIATE FEEDING RUNNING. ODILON MIDLINE IS PATENT, INTACT, AND HAS NO SIGNS OF INFILTRATION. BED IS LOCKED IN THE LOWEST POSITION, 3 GUARD RAILS RAISED, AND ALL HOSPITAL SAFETY PRECAUTIONS ARE BEING FOLLOWED. WILL CONTINUE TO MONITOR THROUGHOUT SHIFT.
[2021-02-10 08:00] VITALS: BP 122/69
[2021-02-10] MEDS: ASCORBIC ACID 500 MG TABLET GT SCH (08:05)
[2021-02-10] MEDS: FLUCONAZOLE (100 MG) 100 MG TABLET PO SCH (08:05)
[2021-02-10] MEDS: DOCUSATE SODIUM LIQ 100 MG/10 ML UDC GT SCH (08:05)
[2021-02-10] MEDS: PANTOPRAZOLE 40 MG/PACK PACK GT SCH (08:05)
[2021-02-10] MEDS: MULTIVIT W/MINERALS 1 TAB TABLET PO SCH (08:05)
[2021-02-10] MEDS: SENNOSIDES 8.6 MG TABLET GT SCH ×2 (08:05→16:54)
[2021-02-10] MEDS: QUETIAPINE FUMARATE 25 MG TABLET GT SCH ×2 (08:05→21:53)
[2021-02-10] MEDS: LISINOPRIL (5MG) 5 MG TABLET GT SCH (08:06)
[2021-02-10] MEDS: APIXABAN 2.5 MG TABLET GT SCH ×2 (08:07→16:55)
[2021-02-10] MEDS: LORAZEPAM INJ 2 MG/ML VIAL IV PRN ×2 (09:17→09:21)
--- NOTE | 2021-02-10 09:25 | NUR ---
RN NOTE PATIENT EXHIBITING SIGNS OF ANXIETY. ADMINISTERED PRN ATIVAN. WILL CONTINUE TO MONITOR.
[2021-02-10] MEDS: THERAHONEY GEL 1.5 OZ TUBE TP SCH (09:58)
[2021-02-10] MEDS: CLOTRIMAZOLE 1% 15 GM TUBE TP SCH ×2 (09:58→17:14)
[2021-02-10] MEDS: MICONAZOLE NITRATE VAG CREAM 45 GM TUBE VG SCH ×2 (09:59→17:14)
[2021-02-10 12:00] VITALS: BP 123/59
[2021-02-10 16:00] VITALS: BP 115/56
--- NOTE | 2021-02-10 18:41 | NUR ---
RN CLOSING NOTE PATIENT IS CURRENTLY IN BED WITH HOB AT SEMI FOWLERS POSITION. CURRENTLY ON VENT/TRACH WITH NO SIGNS OF LABORED BREATHING. PATIENT IS CURRENTLY AOX3. MONTEMAYOR CATHETER IS IN PLACE. SACRAL SKIN TEAR AND RIGHT LATERAL ANKLE WOUND ARE NOTED. GTUBE IS IN PLACE WITH APPROPRIATE FEEDING RUNNING. ODILON MIDLINE IS PATENT, INTACT, AND HAS NO SIGNS OF INFILTRATION. BILATERAL RESTRAINTS ARE APPLIED. BED IS LOCKED IN THE LOWEST POSITION, 3 GUARD RAILS RAISED, AND ALL HOSPITAL SAFETY PRECAUTIONS ARE BEING FOLLOWED. PATIENT IS STABLE WITH ALL DUE MEDICATIONS GIVEN DURING SHIFT. WILL ENDORSE TO ORDERING MACHINE OPERATOR RN.
--- NOTE | 2021-02-10 19:00 | NUR ---
RN OPENING NOTE RECEIVED PATIENT IN BED RESTING ALERT ORIENTED X3,ANXIOUS,ON TRACH/VENT O2:98% G-TUBE IN PLACE CHECKED PLACEMENT IN PLACE NO RESIDUAL,GLUCERNA 1.2 45CC/HR RUNNING. MONTEMAYOR ON PLACE URINE DRAINING BY GRAVITY, YELLOW AND CLEAR.IV SITE IS RIGHT UPPER ARM MIDLINE INTACT PATENT FLUSHED,HEAD OF BED ELEVATED CALL LIGHT WITHIN REACH,SAFETY MEASURE IMPLEMENT,CONTINUE TO MONITOR.
[2021-02-10 20:00] VITALS: BP 101/74
--- NOTE | 2021-02-10 20:42 | NUR ---
RT NOTE Pt rec'd trached on [facility] vent on AC mode. Pt shows no signs of resp distress or sob. Trach is patent and secured. Pt sx;d for mod amt of pale yellow secretions. Alarms are set and audible. Vent plugged into red outlet. Ambu bag bedside. Will continue to monitor closely. Addendum: 02/10/21 at 2043 by MENDY SARAVIA RT Amended: Links added.
[2021-02-10] MEDS: ZOLPIDEM TARTRATE 5 MG TABLET PO PRN (20:47)
[2021-02-10] MEDS: INSULIN GLARGINE, 100 UNIT/ML CARTRIDGE SQ SCH (21:51)
[2021-02-11] VITALS: BP 112/60
[2021-02-11] MEDS: MEROPENEM 1 G in IV NS 0.9% 100 ML IV SCH ×2 (00:25→12:24)
[2021-02-11] MEDS: LORAZEPAM INJ 2 MG/ML VIAL IV PRN ×2 (02:14→18:27)
[2021-02-11] MEDS: GLUCERNA 1.2 1,000 ML BOTTLE NG PRN (03:10)
[2021-02-11 04:00] VITALS: BP 110/59
[2021-02-11] MEDS: GABAPENTIN 300 MG CAPSULE GT SCH ×3 (04:03→20:13)
[2021-02-11] MEDS: BLOOD SUGAR DIAGNOSTIC 1 EACH STRIP IN SCH ×3 (05:11→17:46)
[2021-02-11] MEDS: INSULIN REGULAR, HUMAN 100 UNIT/ML 3 ML VIAL SQ PRN ×2 (05:12→12:25)
--- NOTE | 2021-02-11 05:13 | NUR ---
RN NOTE BLOOD SUGAR IS 92 NOT REQUIRES INSULIN SLIDING SCALE.
[2021-02-11 05:55] LABS: BASOPHILS # (AUTO) 0.1 /CMM (0.0-0.2); BASOPHILS % (AUTO) 0.4 % (0.0-2.0); HEMATOCRIT 34 % (33-45); LYMPHOCYTES # (AUTO) 3.5 /CMM (0.8-4.8); LYMPHOCYTES % (AUTO) 18.9 % (20.0-44.0); MEAN CORPUSCULAR HGB CONC 32 g/dl (31.0-36.0); MEAN CORPUSCULAR VOLUME 90 fL (82-100); MONOCYTES # (AUTO) 1.3 /CMM (0.1-1.30); MONOCYTES % (AUTO) 7.1 % (2.0-12.0); NEUTROPHILS # (AUTO) 12.7 /CMM (1.8-8.9); NEUTROPHILS % (AUTO) 67.6 % (43.0-81.0); PLATELET COUNT (AUTO) 484 /CMM (150-450); RED BLOOD CELL COUNT(AUTO) 3.81 MIL/uL (4.0-5.2); WHITE BLOOD COUNT (AUTO) 18.8 K/uL (4.3-11.0)
[2021-02-11 06:11] LABS: CALCIUM, SERUM 9.1 mg/dL (8.5-10.1); CREATININE 0.7 mg/dL (0.6-1.3); MAGNESIUM 2.3 mg/dL (1.8-2.4); PHOSPHORUS 4.1 mg/dL (2.5-4.9); POTASSIUM 4.1 mmol/L (3.5-5.1)
--- NOTE | 2021-02-11 06:46 | NUR ---
RN CLOSING NOTE PATIENT REMAINS ON ALERT ORIENTED X3,ON MECHANICAL VENT,O2:98% ON G-TUBE FEEDING GLUCERNA 1.2 45C/HR CHECKED PLACEMENT NO RESIDUAL NOTED HEAD OF THE BED ELEVATED ALL THE TIME,MONTEMAYOR ON PLACE URINE DINING YELLOW AND CLEAR,IV SITE IS ON RIGHT UPPER ARM MID INTACT PATENT FLUSHED ALL DUE MEDS GIVEN MD ORDERED KEPT CLEAN AND DRY ALL THE TIME,KEPT COMFORTABLE,ALL NEEDS MET ENDORSE NEXT COMING SHIFT FOR CONTINUATION OF CARE.
--- NOTE | 2021-02-11 07:30 | NUR ---
RN OPENING NOTE TRACH PT LAYING IN BED HIGH FOWLERS ON VENT SETTINGS AC 20, TV 400 FIO2 40% PEEP 5, TOLERATING WELL, SPO2 98%, NO SIGN OF RESP DISTRESS OR SOB. PT AROUSABLE TO NAME, UNABLE TO SPEAK BUT CAN MOUTH WORDS, A/Ox3. PT HAS BILAT SOFT WRIST RESTRAINTS, BILAT CMS INTACT. PT HAS ODILON MIDLINE SL, FLUSHED, PATENT, INTACT WITH NO SIGNS OF INFECTION/INFILTRATION. PT HAS GTUBE, GLUCERNA 1.2 FEEDING @ 45ML/HR- ON FOR 20HR OFF FOR 4HR THEN RESTART. GTUBE AUSCULTATED FOR POSITIVE PLACEMENT, NO RESIDUALS, AND FLUSHED FOR PATENCY. PT DENIES PAIN CURRENTLY. MONTEMAYOR CATH PATENT DRAINING TO GRAVITY CLEAR MICAELA URINE. ALL SAFETY PRECAUTIONS IN PLACE, WILL CONT TO MONITOR
[2021-02-11] MEDS: BUDESONIDE RESPULE INH 0.5 MG/2 ML AMPUL.NEB NEB SCH ×2 (07:45→20:28)
[2021-02-11 08:00] VITALS: BP 108/66
[2021-02-11] MEDS: APIXABAN 2.5 MG TABLET GT SCH ×2 (08:35→16:22)
[2021-02-11] MEDS: DOCUSATE SODIUM LIQ 100 MG/10 ML UDC GT SCH (08:35)
[2021-02-11] MEDS: SENNOSIDES 8.6 MG TABLET GT SCH ×2 (08:36→16:21)
[2021-02-11] MEDS: ASCORBIC ACID 500 MG TABLET GT SCH (08:36)
[2021-02-11] MEDS: LISINOPRIL (5MG) 5 MG TABLET GT SCH (08:36)
[2021-02-11] MEDS: MULTIVIT W/MINERALS 1 TAB TABLET PO SCH (08:37)
[2021-02-11] MEDS: THERAHONEY GEL 1.5 OZ TUBE TP SCH (08:37)
[2021-02-11] MEDS: PANTOPRAZOLE 40 MG/PACK PACK GT SCH (08:37)
[2021-02-11] MEDS: CLOTRIMAZOLE 1% 15 GM TUBE TP SCH ×2 (08:37→16:23)
[2021-02-11] MEDS: QUETIAPINE FUMARATE 25 MG TABLET GT SCH ×2 (08:37→21:34)
[2021-02-11] MEDS: MICONAZOLE NITRATE VAG CREAM 45 GM TUBE VG SCH ×2 (08:38→16:23)
[2021-02-11 12:00] VITALS: BP 108/70
[2021-02-11] MEDS ORDERED: IV NS 0.9% 1,000 ML IV ONE (13:00)
--- NOTE | 2021-02-11 13:15 | NUR ---
RN NOTE SPOKE WITH PT'S DAUGHTER BIRD REGARDING PT'S STATUS AND CARE. ALL QUESTIONS ANSWERED TO BIRD'S SATISFACTION
[2021-02-11] MEDS: FLUCONAZOLE (100 MG) 100 MG TABLET PO SCH (15:10)
[2021-02-11 16:00] VITALS: BP 107/68
--- NOTE | 2021-02-11 18:48 | NUR ---
RN CLOSING NOTE NO CHANGES TO PT STATUS DURING SHIFT, PT ON VENT SETTINGS ORDERED, TOLERATING WELL, SPO2 98%, NO SIGNS OF RESP DISTRESS OR SOB. ALL PT SAFETY PRECAUTIONS IN PLACE. WILL ENDORSE PRICILA TO ONCOMING NURSE
--- NOTE | 2021-02-11 19:20 | NUR ---
RN OPENING NOTE RECEIVED PATIENT LAYING IN BED HIGH FOWLERS ON VENT SETTINGS AC 20, TV 400 FIO2 40% PEEP 5, SPO2 98%, ALERT ORIENTED X3 ANXIOUS,IV SITE IS ON RIGHT UPPER ARM MIDLINE INTACT PATENT NORMAL SALINE 0.9% RUNNING 80CC/HR ONE TIME ONLY,ON G-TUBE FEEDING GLUCERNA 1.2 45CC/HR GOAL IS 65CC/HR CHECKED PLACEMENT IN PLACE NO RESIDUAL NOTED,MONTEMAYOR IN PLACE URINE DRAINING YELLOW/CLEAR BY GRAVITY,HEAD OF BED ELEVATED,CALL LIGHT WITHIN REACH,BED IN LOW POSITION AND LOCKED,SAFETY MEASURE IMPLEMENT CONTINUE TO MONITOR.
[2021-02-11 20:00] VITALS: BP 151/56
[2021-02-11] MEDS: INSULIN GLARGINE, 100 UNIT/ML CARTRIDGE SQ SCH (22:22)
[2021-02-12] VITALS: BP 110/58
[2021-02-12] MEDS: BLOOD SUGAR DIAGNOSTIC 1 EACH STRIP IN SCH ×5 (00:01→23:11)
[2021-02-12] MEDS: INSULIN REGULAR, HUMAN 100 UNIT/ML 3 ML VIAL SQ PRN ×4 (00:04→23:14)
[2021-02-12] MEDS: MEROPENEM 1 G in IV NS 0.9% 100 ML IV SCH ×2 (00:08→12:24)
[2021-02-12] MEDS: ZOLPIDEM TARTRATE 5 MG TABLET PO PRN (01:00)
[2021-02-12 04:00] VITALS: BP 108/51
[2021-02-12] MEDS: GABAPENTIN 300 MG CAPSULE GT SCH ×3 (04:24→21:25)
[2021-02-12] MEDS: GLUCERNA 1.2 1,000 ML BOTTLE NG PRN (05:54)
[2021-02-12 06:25] LABS: BASOPHILS # (AUTO) 0.1 /CMM (0.0-0.2); BASOPHILS % (AUTO) 0.7 % (0.0-2.0); EOSINOPHILS % (AUTO) 7.6 % (0.0-6.0); HEMATOCRIT 34 % (33-45); HEMOGLOBIN 11.2 g/dL (11.5-14.8); LYMPHOCYTES # (AUTO) 2.8 /CMM (0.8-4.8); LYMPHOCYTES % (AUTO) 14.9 % (20.0-44.0); MEAN CORPUSCULAR HGB CONC 33 g/dl (31.0-36.0); MEAN CORPUSCULAR VOLUME 89 fL (82-100); MONOCYTES # (AUTO) 0.9 /CMM (0.1-1.30); MONOCYTES % (AUTO) 4.7 % (2.0-12.0); NEUTROPHILS # (AUTO) 13.4 /CMM (1.8-8.9); NEUTROPHILS % (AUTO) 72.1 % (43.0-81.0); PLATELET COUNT (AUTO) 449 /CMM (150-450); RED BLOOD CELL COUNT(AUTO) 3.84 MIL/uL (4.0-5.2); WHITE BLOOD COUNT (AUTO) 18.6 K/uL (4.3-11.0)
--- NOTE | 2021-02-12 06:52 | NUR ---
RN CLOSING NOTE PATIENT REMAINS ON ALERT ORIENTED X3 LAYING IN BED HIGH FOWLERS ON VENT TRACH #8 SETTINGS AC 20, TV 400 FIO2 40% PEEP 5, SPO2 98%, ALERT ORIENTED X3 ANXIOUS,G-TUBE FEEDING GLUCERNA 1.2 45 CC/HR MONTEMAYOR IN PLACE NO SOB NOT ACUTE DISTRESS NOTED,IV SITE IS ON RIGHT UPPER ARM INTACT PATENT,ALL DUE MEDS GIVEN MD ORDERED KEPT CLEAN AND DRY ALL THE TIME,KEPT COMFORTABLE ALL NEEDS MET.ENDORSE NEXT COMING SHIFT FOR CONTINUATION OF CARE.
[2021-02-12 06:57] LABS: ALBUMIN 2.5 g/dL (3.4-5.0); BILIRUBIN,TOTAL 0.2 mg/dL (0.2-1.0); CALCIUM, SERUM 9.3 mg/dL (8.5-10.1); CREATININE 0.6 mg/dL (0.6-1.3); POTASSIUM 3.9 mmol/L (3.5-5.1); TOTAL PROTEIN, SERUM 7.5 g/dL (6.4-8.2)
--- NOTE | 2021-02-12 07:30 | NUR ---
RN OPENING NOTE TRACH PT LAYING IN BED HIGH FOWLERS ON VENT SETTINGS AC 20, TV 400 FIO2 40% PEEP 5, TOLERATING WELL, SPO2 98%, NO SIGN OF RESP DISTRESS OR SOB. PT AROUSABLE TO NAME, UNABLE TO SPEAK BUT CAN MOUTH WORDS, A/Ox3. PT HAS BILAT SOFT WRIST RESTRAINTS, BILAT CMS INTACT. PT HAS ODILON MIDLINE TKO, FLUSHED, PATENT, INTACT WITH NO SIGNS OF INFECTION/INFILTRATION. PT HAS GTUBE, GLUCERNA 1.2 FEEDING @ 45ML/HR- ON FOR 20HR OFF FOR 4HR THEN RESTART. GTUBE AUSCULTATED FOR POSITIVE PLACEMENT, NO RESIDUALS, AND FLUSHED FOR PATENCY. PT DENIES PAIN CURRENTLY. MONTEMAYOR CATH PATENT DRAINING TO GRAVITY CLEAR MICAELA URINE. ALL SAFETY PRECAUTIONS IN PLACE, WILL CONT TO MONITOR
[2021-02-12] MEDS: BUDESONIDE RESPULE INH 0.5 MG/2 ML AMPUL.NEB NEB SCH ×2 (07:44→20:16)
[2021-02-12 08:00] VITALS: BP 109/64
[2021-02-12] MEDS: QUETIAPINE FUMARATE 25 MG TABLET GT SCH ×2 (08:21→21:25)
[2021-02-12] MEDS: ASCORBIC ACID 500 MG TABLET GT SCH (08:22)
[2021-02-12] MEDS: SENNOSIDES 8.6 MG TABLET GT SCH ×2 (08:22→18:05)
[2021-02-12] MEDS: MULTIVIT W/MINERALS 1 TAB TABLET PO SCH (08:22)
[2021-02-12] MEDS: PANTOPRAZOLE 40 MG/PACK PACK GT SCH (08:22)
[2021-02-12] MEDS: LISINOPRIL (5MG) 5 MG TABLET GT SCH (08:23)
[2021-02-12] MEDS: APIXABAN 2.5 MG TABLET GT SCH ×2 (08:24→18:10)
[2021-02-12] MEDS: CLOTRIMAZOLE 1% 15 GM TUBE TP SCH ×2 (08:32→17:00)
[2021-02-12] MEDS: THERAHONEY GEL 1.5 OZ TUBE TP SCH (08:32)
[2021-02-12] MEDS: MICONAZOLE NITRATE VAG CREAM 45 GM TUBE VG SCH ×2 (08:32→17:00)
[2021-02-12] MEDS: DOCUSATE SODIUM LIQ 100 MG/10 ML UDC GT SCH (08:33)
[2021-02-12] MEDS ORDERED: ERGOCALCIFEROL (VITAMIN D 2) 50,000 UNIT CAPSULE GT SCH (09:00)
[2021-02-12 12:00] VITALS: BP 91/56
[2021-02-12] MEDS ORDERED: ERGOCALCIFEROL (VITAMIN D2) 8,000 UNIT/ML GT SCH (12:30)
[2021-02-12] MEDS: LORAZEPAM INJ 2 MG/ML VIAL IV PRN (13:16)
--- NOTE | 2021-02-12 13:59 | NUR ---
RN NOTE PSYCH CONSULT DONE VIA FACETIME WITH DR SALAZAR AND PT
--- NOTE | 2021-02-12 15:00 | NUR ---
RN NOTE CRISIS EVAL STAFF SPOKE WITH PT
[2021-02-12] MEDS: ESCITALOPRAM OXALATE (10 MG) 10 MG TABLET PO SCH (15:13)
[2021-02-12] MEDS: FLUCONAZOLE (100 MG) 100 MG TABLET PO SCH (15:13)
[2021-02-12 16:00] VITALS: BP 99/60
[2021-02-12] MEDS: ACETAMINOPHEN 325 MG TABLET PO PRN (18:05)
--- NOTE | 2021-02-12 19:00 | NUR ---
RN CLOSING NOTE NO CHANGES TO PT DURING SHIFT. PT IN STABLE CONDITION, NO SIGNS OF RESP DISTRESS OR SOB. PSYCH CONSULT WITH DR SALAZAR COMPLETED. PT RESTRAINTS IN PLACE, BILAT CMS INTACT. ALL SAFETY PRECAUTION IN PLACE, WILL ENDORSE PRICILA TO ONCOMING RN
[2021-02-12 20:00] VITALS: BP 140/56
[2021-02-12] MEDS: INSULIN GLARGINE, 100 UNIT/ML CARTRIDGE SQ SCH (23:13)
[2021-02-13] VITALS: BP 88/48
[2021-02-13 04:00] VITALS: BP 100/62
[2021-02-13] MEDS: BLOOD SUGAR DIAGNOSTIC 1 EACH STRIP IN SCH ×4 (05:35→23:25)
[2021-02-13] MEDS: GABAPENTIN 300 MG CAPSULE GT SCH ×3 (05:35→21:07)
[2021-02-13 06:25] LABS: BASOPHILS # (AUTO) 0.1 /CMM (0.0-0.2); BASOPHILS % (AUTO) 0.6 % (0.0-2.0); EOSINOPHILS % (AUTO) 8.8 % (0.0-6.0); HEMATOCRIT 33 % (33-45); HEMOGLOBIN 10.5 g/dL (11.5-14.8); LYMPHOCYTES # (AUTO) 2.8 /CMM (0.8-4.8); LYMPHOCYTES % (AUTO) 16.7 % (20.0-44.0); MEAN CORPUSCULAR HGB CONC 32 g/dl (31.0-36.0); MEAN CORPUSCULAR VOLUME 90 fL (82-100); MONOCYTES # (AUTO) 0.8 /CMM (0.1-1.30); MONOCYTES % (AUTO) 4.8 % (2.0-12.0); NEUTROPHILS # (AUTO) 11.7 /CMM (1.8-8.9); NEUTROPHILS % (AUTO) 69.1 % (43.0-81.0); PLATELET COUNT (AUTO) 444 /CMM (150-450); RED BLOOD CELL COUNT(AUTO) 3.65 MIL/uL (4.0-5.2); WHITE BLOOD COUNT (AUTO) 16.9 K/uL (4.3-11.0)
[2021-02-13 07:00] LABS: ALBUMIN 2.5 g/dL (3.4-5.0); BILIRUBIN,TOTAL 0.2 mg/dL (0.2-1.0); CALCIUM, SERUM 9.3 mg/dL (8.5-10.1); CREATININE 0.6 mg/dL (0.6-1.3); POTASSIUM 4.4 mmol/L (3.5-5.1); TOTAL PROTEIN, SERUM 7.4 g/dL (6.4-8.2)
--- NOTE | 2021-02-13 07:00 | NUR ---
RN OPENING NOTES RECEIVED PT IN BED, A/O X2. ON VENT SETTINGS AC: 20, TV: 400 FIO2: 40% PEEP 5, TOLERATING WELL. SPO2 @100%. NO SIGN OF RESP DISTRESS. UNABLE TO SPEAK BUT CAN MOUTH WORDS. HAS BILATERAL SOFT WRIST RESTRAINTS. BILATERAL CMS INTACT. PT HAS ODILON MIDLINE INTACT, PATENT AND FLUSHED. GTUBE AUSCULTATED FOR POSITIVE PLACEMENT, GLUCERNA 1.2 @45ML/HR FOR 20HR. NO RESIDUALS. PT DENIES PAIN. MONTEMAYOR CATH DRAINING TO GRAVITY CLEAR MICAELA URINE. SAFETY PRECAUTIONS IN PLACE. CALL LIGHT WITHIN REACH. BED LOCKED AND AT LOWEST POSITION. HOB ELEVATED. WILL CONTINUE TO MONITOR.
[2021-02-13 08:00] VITALS: BP 116/61
[2021-02-13] MEDS: BUDESONIDE RESPULE INH 0.5 MG/2 ML AMPUL.NEB NEB SCH ×2 (08:23→19:51)
[2021-02-13] MEDS: DOCUSATE SODIUM LIQ 100 MG/10 ML UDC GT SCH (08:58)
[2021-02-13] MEDS: ASCORBIC ACID 500 MG TABLET GT SCH (08:58)
[2021-02-13] MEDS: ESCITALOPRAM OXALATE (10 MG) 10 MG TABLET PO SCH (08:58)
[2021-02-13] MEDS: PANTOPRAZOLE 40 MG/PACK PACK GT SCH (08:58)
[2021-02-13] MEDS: SENNOSIDES 8.6 MG TABLET GT SCH ×2 (08:58→16:48)
[2021-02-13] MEDS: MULTIVIT W/MINERALS 1 TAB TABLET PO SCH (08:58)
[2021-02-13] MEDS: QUETIAPINE FUMARATE 25 MG TABLET GT SCH ×2 (08:59→21:07)
[2021-02-13] MEDS: APIXABAN 2.5 MG TABLET GT SCH ×2 (09:01→16:53)
[2021-02-13] MEDS: THERAHONEY GEL 1.5 OZ TUBE TP SCH (09:01)
[2021-02-13] MEDS: CLOTRIMAZOLE 1% 15 GM TUBE TP SCH ×2 (09:01→16:48)
[2021-02-13] MEDS: MICONAZOLE NITRATE VAG CREAM 45 GM TUBE VG SCH ×2 (09:01→16:48)
[2021-02-13] MEDS: LISINOPRIL (5MG) 5 MG TABLET GT SCH (09:11)
[2021-02-13] MEDS ORDERED: GLUCERNA 1.2 1,000 ML BOTTLE NG SCH (10:30)
[2021-02-13 12:00] VITALS: BP 90/57
[2021-02-13] MEDS: INSULIN REGULAR, HUMAN 100 UNIT/ML 3 ML VIAL SQ PRN ×3 (12:48→23:26)
[2021-02-13] MEDS: GLUCERNA 1.2 1,000 ML BOTTLE GT SCH (12:49)
[2021-02-13] MEDS: FLUCONAZOLE (100 MG) 100 MG TABLET PO SCH (14:59)
[2021-02-13 16:00] VITALS: BP 100/58
--- NOTE | 2021-02-13 18:45 | NUR ---
RN CLOSING NOTES NO SIGNIFICANT CHANGES THROUGHOUT THE SHIFT. NOT IN DISTRESS. VS STABLE. NO PAIN REPORTED AT THIS TIME. ALL DUE MEDS GIVEN. NEEDS ATTENDED. SAFETY MEASURES IN PLACE. WILL ENDORSE TO NIGHT NURSE FOR PRICILA.
--- NOTE | 2021-02-13 19:21 | NUR ---
RN NOTE RECEIVED PT ALERT AND ORIENTED X 2 IN BED IN SEMI MORRIS'S POSITION. ABLE TO MAKE NEEDS KNOWN, WITH TRACH CONNECTED TO VENT AND TOLERATING SETTINGS WELL, RT AT BEDSIDE, TRACH MID LINE AND IN PLACE, O2 SATURATION WNL, GT PATENT AND IN PLACE WITH VERIFICATION, TUBE FEEDING RUNNING AT 65ML/HOUR WITH MINIMAL RESIDUAL NOTED, MIDLINE PATENT AND IN PLACE, PLAN OF CARE DISCUSSED, ALARMS ON AND AUDIBLE, BED ALARM ON, SIDE RAILS UP X 3, AMBU BAG AT BEDSIDE, WILL MONITOR PATIENT.
[2021-02-13 20:00] VITALS: BP 99/54
[2021-02-13] MEDS: INSULIN GLARGINE, 100 UNIT/ML CARTRIDGE SQ SCH (21:09)
[2021-02-14] VITALS: BP 95/53
--- NOTE | 2021-02-14 00:02 | NUR ---
RN NOTE COMPLETE BATH AND LINEN CHANGE COMPLETED, PT TOLERATER WELL.
[2021-02-14] MEDS: ACETAMINOPHEN 325 MG TABLET PO PRN (01:18)
[2021-02-14 04:00] VITALS: BP 102/62
[2021-02-14] MEDS: GABAPENTIN 300 MG CAPSULE GT SCH ×2 (04:01→12:34)
[2021-02-14] MEDS: BLOOD SUGAR DIAGNOSTIC 1 EACH STRIP IN SCH ×3 (05:09→18:26)
--- NOTE | 2021-02-14 06:55 | NUR ---
RN NOTE NO ACUTE CHANGES OBSERVED OVERNIGHT. PT AWAKE AND ALERT TOLERATING VENT SETTINGS WELL. O2 SATURATION WNL, NO SIGNS OF PAIN OR DISCOMFORT. TRACH MIDLINE AND IN PLACE, GT FEEDING RUNNING ORDERED, SAFETY MEASURES IN PLACE PER PROTOCOL, ALL NEEDS MET AND ATTENDED TO,
[2021-02-14 07:01] LABS: BASOPHILS # (AUTO) 0.1 /CMM (0.0-0.2); BASOPHILS % (AUTO) 0.6 % (0.0-2.0); EOSINOPHILS % (AUTO) 5.5 % (0.0-6.0); HEMATOCRIT 33 % (33-45); HEMOGLOBIN 10.7 g/dL (11.5-14.8); LYMPHOCYTES # (AUTO) 2.8 /CMM (0.8-4.8); LYMPHOCYTES % (AUTO) 16.1 % (20.0-44.0); MEAN CORPUSCULAR HGB CONC 33 g/dl (31.0-36.0); MEAN CORPUSCULAR VOLUME 89 fL (82-100); MONOCYTES # (AUTO) 0.8 /CMM (0.1-1.30); MONOCYTES % (AUTO) 4.7 % (2.0-12.0); NEUTROPHILS # (AUTO) 12.7 /CMM (1.8-8.9); NEUTROPHILS % (AUTO) 73.1 % (43.0-81.0); PLATELET COUNT (AUTO) 433 /CMM (150-450); WHITE BLOOD COUNT (AUTO) 17.3 K/uL (4.3-11.0)
[2021-02-14 07:18] LABS: ALBUMIN 2.5 g/dL (3.4-5.0); BILIRUBIN,TOTAL 0.2 mg/dL (0.2-1.0); CALCIUM, SERUM 9.4 mg/dL (8.5-10.1); CREATININE 0.5 mg/dL (0.6-1.3); POTASSIUM 4.8 mmol/L (3.5-5.1); TOTAL PROTEIN, SERUM 7.6 g/dL (6.4-8.2)
--- NOTE | 2021-02-14 07:20 | NUR ---
RN OPENING NOTES RECEIVED PT IN BED, A/O X2. ON VENT SETTINGS AC: 20, TV: 400 FIO2: 40% PEEP 5, TOLERATING WELL. SPO2 @100%. NO SIGN OF RESP DISTRESS. UNABLE TO SPEAK BUT CAN MOUTH WORDS. ODILON MIDLINE INTACT, PATENT AND FLUSHED. GTUBE AUSCULTATED FOR POSITIVE PLACEMENT, GLUCERNA 1.2 @65ML/HR. NO RESIDUALS. PT DENIES PAIN. MONTEMAYOR CATH DRAINING TO GRAVITY CLEAR MICAELA URINE. SAFETY PRECAUTIONS IN PLACE. CALL LIGHT WITHIN REACH. BED LOCKED AND AT LOWEST POSITION. HOB ELEVATED. WILL CONTINUE TO MONITOR.
[2021-02-14 08:00] VITALS: BP 103/56
[2021-02-14] MEDS: BUDESONIDE RESPULE INH 0.5 MG/2 ML AMPUL.NEB NEB SCH (08:46)
[2021-02-14] MEDS: LISINOPRIL (5MG) 5 MG TABLET GT SCH (09:00)
[2021-02-14] MEDS: ESCITALOPRAM OXALATE (10 MG) 10 MG TABLET PO SCH (09:10)
[2021-02-14] MEDS: QUETIAPINE FUMARATE 25 MG TABLET GT SCH (09:10)
[2021-02-14] MEDS: PANTOPRAZOLE 40 MG/PACK PACK GT SCH (09:10)
[2021-02-14] MEDS: ASCORBIC ACID 500 MG TABLET GT SCH (09:10)
[2021-02-14] MEDS: MULTIVIT W/MINERALS 1 TAB TABLET PO SCH (09:10)
[2021-02-14] MEDS: DOCUSATE SODIUM LIQ 100 MG/10 ML UDC GT SCH (09:10)
[2021-02-14] MEDS: SENNOSIDES 8.6 MG TABLET GT SCH ×2 (09:10→17:55)
[2021-02-14] MEDS: MICONAZOLE NITRATE VAG CREAM 45 GM TUBE VG SCH ×2 (09:12→17:55)
[2021-02-14] MEDS: THERAHONEY GEL 1.5 OZ TUBE TP SCH (09:12)
[2021-02-14] MEDS: CLOTRIMAZOLE 1% 15 GM TUBE TP SCH ×2 (09:12→17:55)
[2021-02-14] MEDS: APIXABAN 2.5 MG TABLET GT SCH ×2 (09:12→18:20)
--- NOTE | 2021-02-14 09:13 | NUR ---
RN NOTES BP OF 103/56. TO HOLD PRINIVIL. WILL CONTINUE TO MONITOR.
[2021-02-14] MEDS: GLUCERNA 1.2 1,000 ML BOTTLE GT SCH (11:27)
[2021-02-14 12:00] VITALS: BP 108/59
[2021-02-14] MEDS: INSULIN REGULAR, HUMAN 100 UNIT/ML 3 ML VIAL SQ PRN (12:39)
[2021-02-14] MEDS ORDERED: COLL30OI TP (14:42)
[2021-02-14] MEDS ORDERED: CLOT15CR35 TP (14:42)
[2021-02-14] MEDS ORDERED: ESCI10TA PO (14:42)
[2021-02-14] MEDS: FLUCONAZOLE (100 MG) 100 MG TABLET PO SCH (15:26)
--- NOTE | 2021-02-14 18:37 | NUR ---
RN CLOSING NOTES DISCHARGED PT TO [facility], REPORT GIVEN TO MARIELOS GUILLERMO FOR PRICILA. PICKED UP BY AMBULANCE CREW. VS STABLE. NO PAIN REPORTED. NO SOB OR ANY DISTRESS. WOUND CARE DONE. PHOTOS PLACED IN CHART. REFUSES VACCINE DESPITE EDUCATION X3. [facility] HAD THE PT FOR 3 DAYS PRIOR TO ADMISSION, VACCINATION STATUS UNKNOWN.
== END 2021-02-14 18:30 | DRG 853 ==
LOC: ER 23:15 → TELE1 02-05 05:04
PROVIDERS: ADMIT Internal Medicine; ATTEND Nurse Practitioner Acute Care
PROC: 5A1955Z Respiratory Ventilation, Greater than 96 Consecutive Hours (ICD-10-PCS; principal; 2021-02-05)
PROC: 05H933Z Insertion of Infusion Device into Right Brachial Vein, Percutaneous Approach (ICD-10-PCS; 2021-02-05)
PROC: 0JBN0ZZ Excision of Right Lower Leg Subcutaneous Tissue and Fascia, Open Approach (ICD-10-PCS; 2021-02-07)
DX: A41.9 Sepsis, unspecified organism (principal); E43 Unspecified severe protein-calorie malnutrition; G93.41 Metabolic encephalopathy; J96.21 Acute and chronic respiratory failure with hypoxia; N17.0 Acute kidney failure with tubular necrosis; J15.6 Pneumonia due to other Gram-negative bacteria; E87.1 Hypo-osmolality and hyponatremia; B37.49 Other urogenital candidiasis; E87.2 Acidosis; F33.2 Major depressive disorder, recurrent severe without psychotic features; Z99.11 Dependence on respirator [ventilator] status; E11.9 Type 2 diabetes mellitus without complications; Z20.822 Contact with and (suspected) exposure to COVID-19; M20.41 Other hammer toe(s) (acquired), right foot; M20.42 Other hammer toe(s) (acquired), left foot; B37.3 Candidiasis of vulva and vagina; E11.40 Type 2 diabetes mellitus with diabetic neuropathy, unspecified; E11.622 Type 2 diabetes mellitus with other skin ulcer; E78.5 Hyperlipidemia, unspecified; E83.39 Other disorders of phosphorus metabolism; E86.1 Hypovolemia; E87.6 Hypokalemia; F29 Unspecified psychosis not due to a substance or known physiological condition; I10 Essential (primary) hypertension; I48.0 Paroxysmal atrial fibrillation; R13.10 Dysphagia, unspecified; Y95 Nosocomial condition; Z79.01 Long term (current) use of anticoagulants; Z79.899 Other long term (current) drug therapy; Z93.0 Tracheostomy status; Z93.1 Gastrostomy status; E11.621 Type 2 diabetes mellitus with foot ulcer; L97.519 Non-pressure chronic ulcer of other part of right foot with unspecified severity; M62.562 Muscle wasting and atrophy, not elsewhere classified, left lower leg; M62.561 Muscle wasting and atrophy, not elsewhere classified, right lower leg
CPT/HCPCS: 31720; 36410; 36415; 36600; 71045-TC; 71250-TC; 80048-TC; 80053-TC; 80061-TC; 80076-TC; 80202-TC; 81001; 82803-TC; 82962-TC; 83605-TC; 83735-TC; 84100-TC; 84484-TC; 85025-TC; 85378-TC; 85730-TC; 86140-TC; 87040-TC; 87081-TC; 87086-TC; 87186-TC; 94003-TC; 94760-TC; 94762-TC; 94799-TC; 99082-TC; A4623; A7526; C9803; G0378; J1100; J1650; J1815; J2060; J2185; J2543; J3370; J3490; J7030; J7050; J7060; U0003